=== PATIENT | male | born 1955 | race Two or more races ===

== ENCOUNTER 2020-02-08 08:27 | Outpatient (CLI) | payer BC | END 2020-02-08 23:59 | disposition home or self-care (01) | LOC: MSC 08:27 | PROVIDERS: ATTEND Internal Medicine | DX: K81.0 Acute cholecystitis (principal); I10 Essential (primary) hypertension; R91.1 Solitary pulmonary nodule; G47.30 Sleep apnea, unspecified; Z85.79 Personal history of other malignant neoplasms of lymphoid, hematopoietic and related tissues; C85.80 Other specified types of non-Hodgkin lymphoma, unspecified site; D75.9 Disease of blood and blood-forming organs, unspecified ==